=== PATIENT | male | born 1935 | race Caucasian/White ===

== ENCOUNTER 2019-07-21 15:38 | Emergency (ER) | payer OTHER ==
[~2019-07-21] VITALS: Ht 167.6 cm; Wt 65.8 kg
[~2019-07-21 15:38] MED LIST: COREG; DICLOFENAC
--- NOTE | 2019-07-21 16:05 | NUR ---
Patient to ER bed 3 to gown for evaluation. Side rails up.
--- NOTE | 2019-07-21 16:10 | NUR ---
Patient presented to ER C/O leg pain. Patient A&Ox4, skin pink and warm, ambulatory to ER, afebrile, pain 10/10, denies N/V/D. Patient states left upper thigh pain, cramp started this morning.
[2019-07-21 16:18] VITALS: BP_SYST 150
--- NOTE | 2019-07-21 16:25 | NUR ---
ER Dr. FUNES at bedside examining patient.
[2019-07-21] MEDS ORDERED: KETOROLAC TROMETHAMINE 30 MG VIAL IM ONE (16:30)
--- NOTE | 2019-07-21 16:45 | NUR ---
RADIOLOGY STAFF AT FOR PORTABLE X-RAY.
--- NOTE | 2019-07-21 17:15 | NUR ---
Note carlosone in ED - 07/21/19 at 1733 by GINA # 22 gauge angiocath placed to left AC. Use of asceptic technique. Opsite placed over site. Blood return noted. Blood for lab drawn from site. Flushed with 10 cc of normal saline. No evidence of infiltration noted. Patient tolerated well.
[2019-07-21 18:13] VITALS: BP_SYST 144
--- NOTE | 2019-07-21 18:15 | NUR ---
Patient given written and verbal discharge instructions and verbalizes understanding. ER MD discussed with patient the results and treatment provided. Patient in stable condition. ID arm band removed. IV catheter removed intact and dressing applied, no active bleeding. Rx of Robaxin & Aspirin given. Patient educated on pain management and to follow up with PMD. Pain Scale2/10 tolerable for patient . Opportunity for questions provided and answered. Medication side effect fact sheet provided.
== END 2019-07-21 18:15 | disposition home or self-care (01) ==
LOC: SED 15:38
DX: I73.9 Peripheral vascular disease, unspecified (principal); I10 Essential (primary) hypertension; Z88.5 Allergy status to narcotic agent
CPT/HCPCS: 36415; 73552; 82550; 83874; 96372; 99284; J1885